=== PATIENT | male | born 1980 | race Caucasian/White ===

== ENCOUNTER 2020-05-07 03:20 | Emergency (ER) | payer OTHER, SELFPAY ==
--- NOTE | ~2020-05-07 | CT_ITS ---
EXAMINATION: CT abdomen pelvis wo con DATE: 05/07/2020 04:11 INDICATION: Left flank pain. TECHNIQUE: Computed tomography (CT) of the abdomen and pelvis was performed without intravenous contr ast. Automated exposure control and iterative reconstruction technique were employed. The dose-length product was 1524.42 mGy-cm. COMPARISON: None FINDINGS: Lung bases are clear. Heart size is normal. No pericardial or pleural effusion. Diffuse hepatic steat osis. 3 cm peripherally calcified cyst in the spleen. Gallbladder, pancreas, bilateral adrenal glands and right kidney are normal. 1-2 mm stone at the left ureterovesicular junction with mild left hydro ureteronephrosis. Bowels including the appendix are normal. Bladder is normal. No free intraperitonea l gas or fluid. No pathologically enlarged abdominal or pelvic lymphadenopathy. Mild scattered degene rative skeletal changes. IMPRESSION: 1. At least partially obstructing 1-2 mm stone at the left ureterovesicular junction with mild left h ydroureteronephrosis. Reviewed, dictated and finalized at location A. IMPRESSION: 1. At least partially obstructing 1-2 mm stone at the left ureterovesicular marina ction with mild left hydroureteronephrosis.
[2020-05-07 03:27] VITALS: BP 163/119; PULSE 77; RESP 14; TEMP 36.4; O2SAT 99
[2020-05-07] MEDS: KETOROLAC 30 MG/ML VIAL (*BKC) IV PUSH (04:04)
[2020-05-07] MEDS: SODIUM CHLORIDE 0.9% IV 1,000 ML 999 ML IV CONT (04:04)
[2020-05-07 04:42] LABS: Add Urine Microscopic? YES; Appearance Urine Clear (Clear); Bilirubin Urine Negative (Negative); Blood Urine 3+ (Negative); Color Urine Yellow (Yellow); Glucose Urine UA 1+ mg/dL (Negative); Ketones Urine Negative (Negative); Leukocyte Esterase Ur Negative LEU/UL (Negative); Mucus Urine Rare /lpf; Nitrate Urine Negative (Negative); Protein Urine 2+ mg/dL (Negative); RBC Urine >75 /hpf (0-2); Specific Grav Ur 1.024 (1.001-1.035); Squamous Epithelial Cell Urine Rare /hpf (Few); Urobilinogen Urine Negative mg/dL (<2.0); WBC Urine 0-3 /hpf
--- NOTE | 2020-05-07 04:46 | ED.ABDPAIN ---
HPI - Abdominal Pain General Chief Complaint: Urogenital-Male Stated Complaint: GROIN PAIN Time Seen by Provider: 05/07/20 03:32 History of Present Illness HPI narrative: Patient is a 39-year-old male who presents ER with concerns for kidney stone. Reports he had some left-sided lower abdominal discomfort yesterday that suddenly worsened and is now radiating into his left testicle. Urinary frequency and urgency but no dysuria or hematuria. Mild nausea but no vomiting. Has a family history of kidney stones. No alleviating factors. Related Data Home Medications Medication Instructions Recorded Confirmed bupropion HCl mg PO 05/07/20 lisinopril 05/07/20 metoprolol succinate PO 05/07/20 sertraline mg 05/07/20 05/07/20 Allergies Allergy/AdvReac Type Severity Reaction Status Date / Time Cephalosporins Allergy Unknown Verified 05/07/20 03:29 PENICILLIN Allergy Unknown Uncoded 05/07/20 03:29 SULFA Allergy Unknown Uncoded 05/07/20 03:29 Review of Systems Review of Systems: All systems reviewed & are unremarkable except as noted in HPI and below Constitutional: Constitutional: Denies chills, Denies fever(s) and Denies weakness ENT: Denies nasal congestion and Denies sore throat Gastrointestinal: Gastrointestinal: Reports abdominal pain, Reports nausea and Denies vomiting Genitourinary: Genitourinary: Denies hematuria, Denies dysuria, Reports testicular pain and Reports urinary frequency PMF Past Medical History Medical History (Updated 05/07/20 @ 04:49 by Waqas Mccarthy MD) GERD (gastroesophageal reflux disease) Hypertension Surgical History Surgical History (Updated 05/07/20 @ 04:47 by Waqas Mccarthy MD) H/O hernia repair Social History Social History (Updated 05/07/20 @ 04:47 by Waqas Mccarthy MD) Smoking status: Never smoker Exam Narrative: Exam Narrative: GENERAL: Comfortable appearing, obese, and in no acute distress. HEAD: Normocephalic, atraumatic. ENT: Mucous membranes moist. CHEST: Clear to auscultation. No respiratory distress. HEART: Regular rate and rhythm. Normal peripheral pulses. ABDOMEN: Soft, nontender, nondistended. EXTREMITIES: Normal range of motion. No edema. NEURO: Alert and oriented x3. PSYCH: Normal mood and affect. Course Course Emergency Course: Patient informed of results. Pain resolved with Toradol. Discharge home with supportive medications should he passed another stone. Vital Signs Vital signs: Vital Signs Temperature 97.5 F L 05/07/20 03:27 Pulse Rate 77 05/07/20 03:27 Respiratory Rate 14 05/07/20 03:27 Blood Pressure 163/119 H 05/07/20 03:27 Pulse Oximetry 99 05/07/20 03:27 Temperature 97.5 F L 05/07/20 03:27 Pulse Rate 77 05/07/20 03:27 Respiratory Rate 14 05/07/20 03:27 Blood Pressure 163/119 H 05/07/20 03:27 Pulse Oximetry 99 05/07/20 03:27 MDM - Abdominal Pain Lab Data Labs: Lab Results 05/07/20 Range/Units 04:22 Urine Color Yellow (Yellow) Urine Appearance Clear (Clear) Urine pH 5.0 (5.0-9.0) Ur Specific [place] 1.024 (1.001-1.035) Urine Protein 2+ H (Negative) mg/dL Urine Glucose (UA) 1+ H (Negative) mg/dL Urine Ketones Negative (Negative) mg/dL Ur Blood (Man) 3+ H (Negative) Urine Nitrate Negative (Negative) Urine Bilirubin Negative (Negative) Urine Urobilinogen Negative (<2.0) mg/dL Leukocyte Esterase Rfl Negative (Negative) ANJEL/UL Urine RBC >75 H (0-2) /hpf Urine WBC 0-3 /hpf Ur Squamous Epith Cells Rare (Few) /hpf Urine Mucus Rare /lpf Imaging Data Radiologist's impression: CT abdomen pelvis: 1 to 2 mm obstructing left UVJ stone resulting in mild hydroureteronephrosis. Discharge Plan Discharge Clinical Impression: Calculus of ureterovesical junction (UVJ) Patient Disposition: Home, Self-Care Condition: Stable Instructions: Kidney Stones (ED) Additional Instructions: You have a small kidney stone yuly
[2020-05-07 05:04] VITALS: BP 159/94; PULSE 90; RESP 14; O2SAT 100
--- NOTE | 2020-05-07 08:27 | PC.NURSE ---
[id number] RETURNED CALL TO THIS WATER PIPE INSTALLER. THIS WATER PIPE INSTALLER INFORMED PT OF OVER READ BY RADIOLOGY AND NEED TO WEAR SLING AND FOLLOW UP WITH ORTHOPEDICS. ATTEMPTED TO GIVE NAME AND NUMBER FOR DR WHEATLEY. PT STATED SHE HAD AN ORTHO IN [facility] AND SHE WOULD CONTACT THEM. PT INFORMED OF NEED TO CONTINUE WEARING SLING AND TO CONTACT RADIOLOGY FOR DISC TO TAKE TO HER ORTHOPEDIST.
== END 2020-05-07 05:06 | disposition home or self-care (01) ==
PROVIDERS: Emergency Provider Emergency Medicine; PCP Family Medicine Adolescent Medicine
DX: N13.2 Hydronephrosis with renal and ureteral calculous obstruction (principal); K21.9 Gastro-esophageal reflux disease without esophagitis; I10 Essential (primary) hypertension
CPT/HCPCS: 74176; 81001; 96361; 96374; 99284; J1885; J7030

== ENCOUNTER 2022-05-21 11:39 | Outpatient (CLI) | payer OTHER, SELFPAY ==
--- NOTE | ~2022-05-21 | XR_ITS ---
EXAMINATION:XR_[id number]_CR DATE: 05/21/2022 12:16 INDICATION: Neck pain TECHNIQUE: AP, lateral, lateral swimmers and odontoid views of the cervical spine are provided. COMPARISON: None FINDINGS: There is straightening of the cervical spine which can be positional or due to muscular spa sm. Alignment is normal. The odontoid is intact. No fracture is identified. Vertebral body heights an d disk spaces are normal. Prevertebral soft tissues are normal. IMPRESSION: 1. Straightening of cervical spine which may be due to muscular spasm or positioning. Reviewed, dictated and finalized at location F. IMPRESSION: 1. Straightening of cervical spine which may be due to muscular spasm or positi oning.
[2022-05-21 18:27] LABS: Hematocrit 43.4 % (42.0-52.0); Hemoglobin 14.7 g/dL (14.0-18.0); Mean Corpuscular HGB Conc 33.9 g/dl (32-36); Mean Corpuscular Hemoglobin 32.5 pg (26-34); Mean Corpuscular Volume 95.8 fl (80-100); Mean Platelet Volume 10.6 fl (7.4-10.4); Platelet Count Result 214 k/mm3 (150-375); Red Blood Count 4.53 M/mm3 (4.6-6.20); Red Cell Distribution Width 12.6 % (11.5-14.5); White Blood Count 7.7 K/mm3 (4.5-10.0)
[2022-05-21 19:32] LABS: Creatinine Urine 190.8 mg/dL
[2022-05-21 19:35] LABS: Alanine Aminotransferase 33 U/L (6-50); Albumin Level 4.5 g/dL (3.5-5.1); Alkaline Phosphatase 78 U/L (38-126); Anion Gap 9 mmol/L (8-16); Aspartate Amino Transferase 25 U/L (17-59); Bilirubin,Total 0.4 mg/dL (0.2-1.3); Blood Urea Nitrogen 20 mg/dL (9-20); Calcium 10.7 mg/dL (8.4-10.2); Carbon Dioxide 26 mmol/L (22-30); Chloride 105 mmol/L (98-107); Cholesterol 146 mg/dL (0-200); Estimated Glomerular Filt Rate > 60; Glucose 94 mg/dL (65-110); HDL Direct 30 mg/dL; Potassium 4.6 mmol/L (3.4-5.0); Sodium 140 mmol/L (137-145); Triglycerides 371 mg/dL (<150)
[2022-05-21 19:41] LABS: MALB Creatinine Ratio 54.3 mg/g (0-30); Microalbumin Urine Random 103.6 mg/L (0-16.7)
[2022-05-21 19:46] LABS: LDL Cholesterol Direct 38 mg/dL
[2022-05-27 03:28] LABS: H pylori Ag Stool Not Detected (Not Detected)
== END 2022-05-21 11:40 | disposition home or self-care (01) ==
PROVIDERS: PCP Family Medicine; Visit Provider Family Medicine
DX: E11.9 Type 2 diabetes mellitus without complications (principal); M54.2 Cervicalgia; K21.9 Gastro-esophageal reflux disease without esophagitis; Z00.00 Encounter for general adult medical examination without abnormal findings
CPT/HCPCS: 36415; 72040; 80053; 80061; 82043; 83036; 85027; 87338

== ENCOUNTER 2022-06-23 00:07 | Day surgery (SDC) | payer OTHER, SELFPAY ==
[2022-06-08 14:59] VITALS: BMI 43.2
[2022-06-23 07:51] VITALS: BP 135/79; PULSE 65; RESP 18; TEMP 36.3; O2SAT 97
[2022-06-23] MEDS: LACTATED RINGERS 1,000 ML 150 ML IV CONT ×2 (07:55→10:19)
--- NOTE | 2022-06-23 08:04 | WPDANESEPPF ---
Anes - Initial Pre Proc Eval Procedure: Operation Date: 06/23/22 09:15 Proposed Procedures p Esophagogastroduodenoscopy & Colonoscopy - Lebron Maria MD Date/Time: 06/23/22 08:04 Surgeon: Lebron Maria MD Pre Op Diagnosis: changed in bowel habits, GERD, Dysphagia Patient Data Age: 41 Gender: M Height: 1.73 m Weight: 129.7 kg Last Vital Signs Temp 36.3 C L 06/23/22 07:51 Pulse 65 06/23/22 07:51 Resp 18 06/23/22 07:51 BP 135/79 06/23/22 07:51 Pulse Ox 97 06/23/22 07:51 O2 Del Method Room Air 06/23/22 07:51 Allergies Allergy/AdvReac Type Severity Reaction Status Date / Time Cephalosporins Allergy Unknown Verified 06/23/22 07:50 Penicillins Allergy Unknown Verified 06/23/22 07:50 Sulfa (Sulfonamide Allergy Unknown Verified 06/23/22 07:50 Antibiotics) Home Medications Medication Instructions Recorded Confirmed Type ondansetron 4 mg disintegrating 4 mg PO Q6H PRN nausea and 05/07/20 06/23/22 Rx tablet vomiting #10 tabs atorvastatin 20 mg tablet 20 mg PO DAILY #90 tabs 05/21/22 06/23/22 Rx bupropion HCl 300 mg 24 hr tablet, 300 mg PO DAILY #90 tabs 05/21/22 06/23/22 Rx extended release dulaglutide 1.5 mg/0.5 mL 1.5 mg (0.5 mL) subcut WEEKLY #2 mL 05/21/22 06/23/22 Rx subcutaneous pen injector (Trulicity) escitalopram oxalate 10 mg tablet 10 mg PO DAILY #90 tabs 05/21/22 06/23/22 Rx (Lexapro) lisinopril 40 mg tablet 40 mg PO DAILY #90 tabs 05/21/22 06/23/22 Rx metformin 500 mg 24 hr 500 mg PO BID #90 tabs 05/21/22 06/23/22 Rx tablet,extended release metoprolol succinate 100 mg 100 mg PO DAILY #90 tabs 05/21/22 06/23/22 Rx tablet,extended release 24 hr omeprazole 20 mg capsule,delayed 20 mg PO DAILY #90 caps 05/21/22 06/23/22 Rx release spironolactone 50 mg tablet 50 mg PO DAILY #90 tabs 05/21/22 06/23/22 Rx oxcarbazepine 300 mg tablet 1 tablet PO BID 06/08/22 06/23/22 History Patient hx anesthesia problems: none Family hx anesthesia problems: none Results Review: All pre-operative results and documents have been reviewed as part of the pre-operative evaluation. [facility] Past Medical History Medical History Diabetes type 2, controlled GERD (gastroesophageal reflux disease) Hypertension Obesity Obstructive sleep apnea Surgical History Surgical History H/O hernia repair H/O knee surgery Family History Family History Father Diabetes mellitus Depression Heart disease Cerebrovascular accident Mother Diabetes mellitus Hypertension Depression Grandparent Hypertension Grandparent Skin cancer Diabetes mellitus Depression Heart disease Cancer determined by colorectal biopsy Social History Social History Smoking status: Former smoker Tobacco type: cigarettes and e-cigarettes/vaping Alcohol intake: never Substance use: current Substance use type: marijuana Living arrangements: with family Additional living arrangements comments: Partner Spiritual care concerns: No Anes - Eval Final PreProcedure Day of Procedure 06/23/22 08:04 Patient weight: morbidly obese Heart: regular rate and rhythm Lungs: clear to auscultation Airway: Mallampati scale class II Neurological: alert and oriented Last oral intake: >/= 8 hours ASA classification: III Emergent: no Anesthesia type and monitoring: general GIVS and standard monitoring Results Review: All pre-operative results and documents have been reviewed as part of the pre-operative evaluation. Informed Consent: The patient's anesthetic plan and its attendant risks and benefits were discussed with the patient/family/POA. Questions were solicited and answers provided to the satisfaction of the patient/family/POA.
[2022-06-23 08:12] LABS: Glucose Point of Care 122 mg/dl (65-105)
--- NOTE | 2022-06-23 09:02 | WPDHPUPDATE1 ---
History and Physical Update Update Date/Time: 06/23/22 09:02 History and Physical has been reviewed, including an updated exam of the patient. There are NO changes in the patient's condition. Risks, benefits, and alternatives have been discussed and questions answered. Patient agrees to proceed with procedure.
[2022-06-23] MEDS: BENZOCAINE (*SP) 60 ML SPRAY CAN (HURRICAINE) 1 SPRAY MUCOUS MEM (09:59)
--- NOTE | 2022-06-23 10:16 | SUR.OPER ---
EGD ended at 1009. Colonoscopy started at 1016.
[2022-06-23 10:35] VITALS: BP 127/65; PULSE 64; RESP 17; O2SAT 97
[2022-06-23 10:45] VITALS: BP 127/65; PULSE 64; RESP 13; O2SAT 98
[2022-06-23 10:55] VITALS: BP 116/71; PULSE 65; RESP 17; O2SAT 99
== END 2022-06-23 11:10 | disposition home or self-care (01) ==
PROVIDERS: PCP Family Medicine; Visit Provider Internal Medicine Gastroenterology
PROC: 0DJ08ZZ Inspection of Upper Intestinal Tract, Via Natural or Artificial Opening Endoscopic (ICD-10-PCS; CPT 43235; principal; 2022-06-23 09:15)
DX: R19.4 Change in bowel habit (principal); K64.8 Other hemorrhoids; D12.4 Benign neoplasm of descending colon; Z79.84 Long term (current) use of oral hypoglycemic drugs; K21.9 Gastro-esophageal reflux disease without esophagitis; I10 Essential (primary) hypertension; E11.9 Type 2 diabetes mellitus without complications; G47.33 Obstructive sleep apnea (adult) (pediatric); Z87.891 Personal history of nicotine dependence; F12.90 Cannabis use, unspecified, uncomplicated; E66.01 Morbid (severe) obesity due to excess calories; Z68.41 Body mass index [BMI] 40.0-44.9, adult; R13.10 Dysphagia, unspecified
CPT/HCPCS: 45385; 43239; 82948; 87081; 88305; J2704; J7120

== ENCOUNTER 2022-08-19 05:57 | Emergency (ER) | payer OTHER, SELFPAY ==
[2022-08-19] VITALS (13 sets, daily range): BP systolic 109–137; BP diastolic 59–86; PULSE 86; RESP 20; TEMP 37.1; O2SAT 90–99
[2022-08-19 06:19] LABS: Basophils Percent Auto 0.3 % (0.2-1.2); Eosinophils Absolute Auto 0.1 K/mm3 (0-0.3); Eosinophils Percent Auto 1.2 % (0-4.4); Hematocrit 42.9 % (42.0-52.0); Hemoglobin 14.7 g/dL (14.0-18.0); Immature Granulocyte Absolute 0.02 K/mm3 (0.00-0.031); Immature Granulocyte Percent A 0.2 % (0-0.5); Lymphocytes Absolute Auto 1.09 K/mm3 (0.9-3.2); Lymphocytes Percent Auto 12.1 % (18.3-44.2); Mean Corpuscular HGB Conc 34.3 g/dl (32-36); Mean Corpuscular Hemoglobin 33.2 pg (26-34); Mean Corpuscular Volume 96.8 fl (80-100); Mean Platelet Volume 9.5 fl (7.4-10.4); Monocytes Absolute Auto 0.7 K/mm3 (0.1-0.6); Monocytes Percent Auto 8.1 % (2.6-8.5); Neutrophils Absolute Auto 7.1 K/mm3 (1.3-6.7); Neutrophils Percent Auto 78.1 % (45.5-73.1); Platelet Count Result 248 k/mm3 (150-375); Red Blood Count 4.43 M/mm3 (4.6-6.20); Red Cell Distribution Width 12.5 % (11.5-14.5)
--- NOTE | 2022-08-19 06:23 | ED.NAVMDI ---
HPI - Nausea/Vomiting/Diarrhea General Chief complaint: Nausea/Vomiting/Diarrhea <Dorie Rich MD - Last Filed: 08/19/22 19:04> Stated complaint: nausea/vomiting <Dorie Rich MD - Last Filed: 08/19/22 19:04> Time Seen by Provider: 08/19/22 06:08 <Dorie Rich MD - Last Filed: 08/19/22 19:04> Source: patient, RN notes reviewed and old records reviewed <Dorie Rich MD - Last Filed: 08/19/22 19:04> Mode of arrival: wheelchair <Dorie Rich MD - Last Filed: 08/19/22 19:04> Limitations: no limitations <Dorie Rich MD - Last Filed: 08/19/22 19:04> History of Present Illness HPI Narrative: This is a 41 year old male with history of GERD, hypertension and DM who presents for evaluation of nausea, vomiting and diarrhea. Patient reports yesterday around 11 am he developed a lot of belching with gas. He was able to eat dinner throughout the day, and he ate steak around 7 pm. He woke up around 2 am with nausea, vomiting and diarrhea. He reports he becomes cold, clammy, sweaty with vomiting. His family at bedside also reports patient was lightheaded during his nausea and vomiting. He is having waves of dry heaves. He denies associated chest pain, cough, URI, diarrhea or fever. He states he has episodes similar in the past but he usually only has 1 episode of vomiting before symptoms resolve. THis episode has lasted longer. He has history of IBS and he has recent EGD and colonoscopy. He takes omeprazole 20 mg daily and he states his GERD symptoms have improved. He smokes marijuana daily to treat his anxiety. <Dorie Rich MD - Last Filed: 08/19/22 19:04> Related Data Home medications: Home Medications Medication Instructions Recorded Confirmed oxcarbazepine 300 mg tablet 1 tablet PO BID 06/08/22 06/23/22 <Dorie Rich MD - Last Filed: 08/19/22 19:04> Allergies/Adverse reactions: Allergies Allergy/AdvReac Type Severity Reaction Status Date / Time Cephalosporins Allergy Unknown Verified 08/19/22 06:10 Penicillins Allergy Unknown Verified 08/19/22 06:10 Sulfa (Sulfonamide Allergy Unknown Verified 08/19/22 06:10 Antibiotics) <Dorie Rich MD - Last Filed: 08/19/22 19:04> Review of Systems Review of Systems: All systems reviewed & are unremarkable except as noted in HPI and below <Dorie Rich MD - Last Filed: 08/19/22 19:04> Constitutional: Constitutional: Denies fatigue and Denies fever(s) <Dorie Rich MD - Last Filed: 08/19/22 19:04> ENT: Reports dizziness and Denies sore throat <Dorie Rich MD - Last Filed: 08/19/22 19:04> Cardiovascular: Cardiovascular: Denies chest pain and Denies radiating jaw, neck or arm pain <Dorie Rich MD - Last Filed: 08/19/22 19:04> Respiratory: Respiratory: Denies chest congestion, Denies cough and Denies dyspnea <Dorie Rich MD - Last Filed: 08/19/22 19:04> Gastrointestinal: Gastrointestinal: Denies abdominal pain, Reports diarrhea, Reports nausea and Reports vomiting <Dorie Rich MD - Last Filed: 08/19/22 19:04> [facility] Past Medical History Medical History: Medical History Diabetes type 2, controlled GERD (gastroesophageal reflux disease) Hypertension Obesity Obstructive sleep apnea <Dorie Rich MD - Last Filed: 08/19/22 19:04> Surgical History Surgical History: Surgical History H/O hernia repair H/O knee surgery <Dorie Rich MD - Last Filed: 08/19/22 19:04> Family History Family History: Family History Father Diabetes mellitus Depression Heart disease Cerebrovascular accident Mother Diabetes mellitus Hypertension Depression Grandparent Hypertension Grandparent Skin cancer Diabetes mellitus Depression Heart dise
--- NOTE | 2022-08-19 06:24 | ECG_ITS ---
Measurements Intervals [place] Rate: 73 P: 24 MS: 192 QRS: -7 QRSD: 110 T: -1 QT: 400 QTc: 442 Interpretive Statements SINUS RHYTHM LOW QRS VOLTAGE IN PRECORDIAL LEADS INCOMPLETE RIGHT BUNDLE BRANCH BLOCK INFERIOR INFARCT, AGE INDETERMINATE ABNORMAL ECG NO PREVIOUS ECG AVAILABLE FOR COMPARISON Electronically Signed On 08-19-2022 7:54:05 CDT by Richardson Hammonds D.O.
[2022-08-19] MEDS: SODIUM CHLORIDE 0.9% IV 1,000 ML 999 ML IV CONT ×2 (06:27→06:36)
[2022-08-19] MEDS: ONDANSETRON INJ 4 MG/2 ML VIAL IV PUSH (06:28)
[2022-08-19 06:29] LABS: Alanine Aminotransferase 36 U/L (6-50); Albumin Level 4.5 g/dL (3.5-5.1); Alkaline Phosphatase 90 U/L (38-126); Anion Gap 12 mmol/L (8-16); Aspartate Amino Transferase 34 U/L (17-59); Bilirubin,Total 0.7 mg/dL (0.2-1.3); Blood Urea Nitrogen 20 mg/dL (9-20); Calcium 9.2 mg/dL (8.4-10.2); Carbon Dioxide 23 mmol/L (22-30); Chloride 105 mmol/L (98-107); Estimated CRCL calculation 96 ml/min; Estimated Glomerular Filt Rate > 60; Glucose 172 mg/dL (65-110); Lipase 118 U/L (23-300); Potassium 4.8 mmol/L (3.4-5.0); Sodium 140 mmol/L (137-145)
[2022-08-19 06:30] LABS: Glucose Point of Care 161 mg/dl (65-105)
[2022-08-19] MEDS: PANTOPRAZOLE SODIUM IV 40 MG VIAL IV PUSH (06:30)
[2022-08-19 07:18] LABS: SARS-CoV-2 RNA PCR Negative
--- NOTE | 2022-08-19 07:34 | PC.NURSE ---
Report given to ANDERSON Burgess
[2022-08-19 08:35] LABS: Appearance Urine Clear (Clear); Bilirubin Urine Negative (Negative); Blood Urine Negative (Negative); Color Urine Yellow (Yellow); Glucose Urine UA Negative (Negative); Ketones Urine Negative (Negative); Leukocyte Esterase Ur Negative LEU/UL (Negative); Nitrate Urine Negative (Negative); Protein Urine Negative (Negative); Specific Grav Ur 1.025 (1.001-1.035); Urobilinogen Urine 0.2 mg/dL (<2.0); pH Urine 5.5 (5.0-9.0)
[2022-08-19 08:51] LABS: Add Urine Microscopic? NO
== END 2022-08-19 08:53 | disposition home or self-care (01) ==
PROVIDERS: Emergency Provider General Practice; PCP Family Medicine
DX: K52.9 Noninfective gastroenteritis and colitis, unspecified (principal); E11.9 Type 2 diabetes mellitus without complications; K21.9 Gastro-esophageal reflux disease without esophagitis; I10 Essential (primary) hypertension; G47.33 Obstructive sleep apnea (adult) (pediatric); E66.9 Obesity, unspecified; Z68.41 Body mass index [BMI] 40.0-44.9, adult; Z87.891 Personal history of nicotine dependence; F12.90 Cannabis use, unspecified, uncomplicated; Z79.84 Long term (current) use of oral hypoglycemic drugs; Z79.899 Other long term (current) drug therapy; Z20.822 Contact with and (suspected) exposure to COVID-19
CPT/HCPCS: 36415; 80053; 81003; 82948; 83690; 85025; 93005; 96361; 96374; 96375; 99284; C9113; C9803; J2405; J7030; U0003; U0005